=== PATIENT | female | born 1955 | race Caucasian/White ===

== ENCOUNTER 2024-12-13 12:49 | Emergency (ER) | payer MEDICARE ==
[~2024-12-13] VITALS: Ht 162.6 cm; Wt 74.8 kg
[2024-12-13 13:02] VITALS: PULSE 102; RESP 18; TEMP 99.5; O2SAT 97
[2024-12-13] MEDS ORDERED: ATORVASTATIN CA20 MG PO (13:07)
[2024-12-13] MEDS ORDERED: METOPROLOL SUCC50 MG PO (13:07)
[2024-12-13] MEDS ORDERED: ASPIRIN81 MG PO (13:07)
[2024-12-13] MEDS ORDERED: BACTRIM DS TAB1 EACH PO (13:28)
[2024-12-13] MEDS ORDERED: AMOX TR-K CLV1 EAC2 PO (13:28)
== END 2024-12-13 13:55 | disposition home or self-care (01) ==
LOC: EDBD 12:49 → ER 12:57
DX: R50.9 Fever, unspecified (principal); L03.314 Cellulitis of groin; I10 Essential (primary) hypertension; E78.5 Hyperlipidemia, unspecified; F17.210 Nicotine dependence, cigarettes, uncomplicated
CPT/HCPCS: 99282